=== PATIENT | female | born 1990 | race Caucasian/White ===

== ENCOUNTER 2022-11-23 07:26 | Emergency (ER) | payer BC, SELFPAY ==
[2022-11-23 07:27] VITALS: BP 105/77; PULSE 86; RESP 14; TEMP 36.6; O2SAT 100
--- NOTE | 2022-11-23 07:53 | ED.VIS.BACK ---
HPI History of Present Illness Chief Complaint: Back Informant: patient Onset/Context/Timing Onset: Yesterday Context: Sudden Onset (While walking yesterday at home outside in yard) Current Severity: Mild Maximum Severity: Severe Worsened by: improves with Movement and Bending Relieved by: Remaining Still Associated Symptoms Associated Symptoms: Negative for Numbness, Tingling, Radiation to Right Leg, Radiation to Left Leg, Fever, Abdominal Pain, Dysuria, Unable to Ambulate, Unable to Transfer, Urinary Retention, Urinary Incontinence, Constipation or Fecal Incontinence Narrative Narrative: Patient presenting along with her mother stating they were sent from urgent care because of back pain and spasms. She states that she has been having this pain off and on for the last several weeks, but not as bad as it was this morning. She hopes to lift heavy piece of furniture the day before yesterday. She did not notice any injury. Yesterday she started having this discomfort, then she got up to use the bathroom this morning about 330, and she was fine when she woke up but after getting out of bed she noticed severe spasms across her lower back nonlateralizing like her back was locking up. She states when the pain was severe, it almost made her ears ring on both sides but that was brief and transient. No syncope. No abdominal pain. No numbness or tingling, no bowel or bladder dysfunction, she states she is fine if she does not move but then as soon as she twists or bends or uses her back muscles the pain is fairly severe and she had trouble getting in and out of the car. There was no call from urgent care for a practitioner, but the mother who accompanies her and provides the majority of the history, states that urgent care sent them here because they could not give us anything other than Tylenol, which she took after the pain started at 330 this morning. They present here at around 7:30 AM. Prior similar symptoms: Yes and With Prior Back Pain [facility] Medical History (Updated 11/23/22 @ 07:[address] Homar Hu MD) Depression Home Medications cyclobenzaprine 10 mg tablet 10 mg PO TID PRN Muscle Spasm #15 TABLETS 11/23/22 [Rx Last Taken Unknown] naproxen 500 mg tablet 500 mg PO BID PRN #14 tabs 11/23/22 [Rx Last Taken Unknown] sertraline 100 mg tablet 150 mg PO DAILY 11/23/22 [History Last Taken Unknown] Allergy/AdvReac Type Severity Reaction Status Date / Time Sulfa (Sulfonamide Allergy Hives Verified 11/23/22 07:28 Antibiotics) Social History Smoking Status: Former smoker ROS ROS ED Constitutional Constitutional ED: Denies chills or fever(s) Gastrointestinal Gastrointestinal: Denies abdominal pain, constipation, fecal incontinence, nausea or vomiting Genitourinary Genitourinary ED: Reports other Details: no urinary retention ; Denies abdominal discomfort or urinary incontinence Musculoskeletal Musculoskeletal: Reports as per HPI, back pain and muscle spasms; Denies neck pain Integumentary Denies rash or wounds Neurologic Neurologic: Denies headache(s), paresthesias or weakness EXAM Physical Exam Const Vital Signs: 11/23/22 07:27 Temperature 97.9 F Temperature Source Temporal Pulse Rate 86 Respiratory Rate 14 Blood Pressure 105/77 Blood Pressure Mean 86 Pulse Ox 100 Oxygen Delivery Method Room Air Positive well nourished and well developed General Appearance ED: well developed and NAD HEENT Negative for trauma or tenderness Eyes PERRL and EOMs intact bilaterally Neck full ROM and supple GI normal to inspection, nondistended, normoactive bowel sounds, soft to palpation and non-tender Back/Spine normal to inspection and no thoracic nor lumbar tenderness Back/Spine Narrative: Some painful bilateral paraspinal lumbosacral discomfort with active range of motion involving those muscle groups and with performing sitting straight leg raises without sciatica, but nontender when at rest and not in discomfort. Lumbar Spine / Lower Back: ROM limited and straight leg raise negative bilaterally; Negative for lumbar spinal tenderness or paraspinal muscle tenderness Extremity normal to inspection, full ROM and no pedal edema Neuro oriented x3 and no sensory deficits noted Sensorium / Orientation: alert Motor Exam: strength 5/5 throughout and clonus absent Deep Tendon Reflexes: Rt Patellar (L4): 2+, Lt Patellar (L4): 2+, Rt Ankle (S1): 2+ and Lt Ankle (S1): 2+ Deep Tendon Reflexes Back: Rt Patellar (L4): 2+, Lt Patellar (L4): 2+, Rt Ankle (S1): 2+ and Lt Ankle (S1): 2+ Plantar Reflex: Downgoing: bilateral Psych mental status grossly normal and thought process normal Skin no rashes or lesions noted and no wounds MDM MDM MDM Narrative Medical decision making narrative: The patient and her mother use the term sciatica, stating that she has been having sciatica off and on for the last several weeks however in discussing further, she has had no radiation down the legs and they are using the term incorrectly, assuming that the pain in her back that she was having was sciatica simply because she was having pain in her low back. She does not have any findings of sciatica here, nor does it sound like she has had any symptoms of it either. This all sounds like muscle spasm which is what she states it feels like. I think probably lifting something heavy the day before yesterday made it worse. I think it is muscular. I offered injections of Toradol and Norflex, I suspect that would help her quicker and better than taking pills. She and the mother both declined anything that involves needles, we discussed multiple ways to do that, and she was appreciative the offer but declines, she understands that at this point I can do nothing different than they could in urgent care and they understand that, certainly imaging was considered, her abdomen is very benign but I do not think there is any indication for imaging of the spine which is nontender and without injury, nor do I suspect this is some type of dangerous vascular phenomenon, so I do not think she needs advanced abdominal imaging. She has equal pulses in both feet that are easily palpable. Given a dose of naproxen and cyclobenzaprine, as well as prescriptions and they are comfortable with the plan of following up as needed. Discharge Plan Triage Chief Complaint: Back ED Provider: Homar Hu Dx/Rx/DC Orders Clinical Impression: Spasm of lumbar paraspinous muscle, Acute lumbosacral myofascial strain Instructions: ED Back Sprain/Strain, ED Muscle Spasm Prescriptions: New cyclobenzaprine [cyclobenzaprine] 10 mg tablet 10 mg PO TID PRN (Reason: Muscle Spasm) Qty: 15 0RF naproxen 500 mg tablet 500 mg PO BID PRN Qty: 14 0RF No Action sertraline 100 mg tablet 150 mg PO DAILY Label Comments: TAKE 1 & 1/2 (ONE & ONE-HALF) TABLETS BY MOUTH ONCE DAILY Primary Care Provider: Care Physician,No Primary Referrals: Doctor,Your [Non-Staff] - 1 Week if not improving Disposition Disposition: Home, Self Care
[2022-11-23] MEDS: Naproxen 250 MG Tablet 500 MG PO (07:59)
[2022-11-23] MEDS: cycloBENZAPRine HCl 10 MG Tablet PO (07:59)
== END 2022-11-23 08:18 | disposition home or self-care (01) ==
PROVIDERS: Emergency Provider Emergency Medicine; PCP Physician Assistant; Visit Provider Emergency Medicine
DX: S39.012A Strain of muscle, fascia and tendon of lower back, initial encounter (principal); M62.830 Muscle spasm of back; F32.A Depression, unspecified; Z79.899 Other long term (current) drug therapy; Z87.891 Personal history of nicotine dependence; X58.XXXA Exposure to other specified factors, initial encounter
CPT/HCPCS: 99283